=== PATIENT | female | born 2000 | race Hispanic/Latino ===

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

== ENCOUNTER 2024-09-27 18:48 | Emergency (ER) | payer SELFPAY ==
[~2024-09-27] VITALS: Ht 172.7 cm; Wt 121.1 kg
[2024-09-27] MEDS: LIDOCAINE 4% ADH..PATCH TP STA (20:25)
[2024-09-27] MEDS: methoCARBamol 500 MG TABLET PO STA (20:25)
[2024-09-27] MEDS: acetaMINOPHEN 500 MG TABLET PO STA (20:26)
[2024-09-27] MEDS: ketOROlac 15MG/ML VIAL (15MG/ML) IM STA (20:26)
[2024-09-27] MEDS ORDERED: METH-811 PO (20:30)
[2024-09-27] MEDS ORDERED: LIDO1ADH82 TP (20:30)
--- NOTE | 2024-09-27 20:30 | ERN ---
ED Note History of Present Illness Stated Complaint: SCIATIC PAIN Chief Complaint: Back Pain-No Injury Time Seen by MD: 18:49 Time Seen by Midlevel: 18:55 Dictation: 24-year-old female coming in with complaints of right lower back pain radiating to her right leg states for the last week. Patient states she has been taking [id number] Tylenol but has not helped. Denies any trauma, numbness tingling witnessed. Denies any saddle paresthesias. LMP 08/19/2024. States she is irregular with her periods Allergies: Coded Allergies: No Known Drug Allergies (Unverified Allergy, Unknown, 09/13/17) Home Meds Reported Medications Acetaminophen (Tylenol Extra Strength) 500 Mg Tablet, 1000 MG PO Q6H PRN for CHRISTIAN N LEVEL 1 TO 5, TAB 09/14/17 Ibuprofen (Ibuprofen) 600 Mg Tablet, 600 MG PO Q6H PRN for PAIN, TAB 09/14/17 Past Medical History Past Medical History: No Pertinent History Surgical History: Other LMP: Aug 19, 2024 Review of System Dictation Constitutional: Negative for fever,chills, and weight loss Eyes: Negative for injury, pain,redness, and discharge ENT: Negative for injury,pain or swelling Cardiovascular: Negative for chest pain, palpitations, and edema Respiratory: Negative for shortness of breath, cough, and wheezing, Abdomen/GI: Negative for abdominal pain, nausea, vomiting, diarrhea, and constipation Back: Negative for injury and pain, complaining of right lower back pain radiating to the right leg : Negative for injury, bleeding and discharge MS/Extremity: Negative for injury and deformity Skin: Negative for rash, and discoloration Neuro: Negative for headache, weakness, numbness, tingling, and seizure Psych: Negative for suicide ideation, homicidal ideation, and hallucinations Review of Systems: was completed Initial Vital Sign VS Vital Signs Date Time Temp Pulse Resp B/P (MAP) Pulse Ox O2 Delivery O2 Flow Rate FiO2 09/27/24 19:05 99.1 92 20 153/112 95 Room Air Physical Exam Dictation General: awake, alert, NAD Head/Face: Normocephalic, atraumatic Eyes: PERRL, EOMI, vision at baseline ENT: oral cavity clear, TMs clear, no signs of infection Neck: Trachea midline, supple, no nuchal rigidity Cardiovascular: RRR, normal S1/S2, No MRGs, no JVD Respiratory: CTAB, no respiratory distress, No rales or wheezes Abdomen: Soft, non-tender, non-distended, normal bowel sounds, no guarding or rebound. Skin: Warm, dry, normal turgor, no rash MS/Extremity: Pulses equal, no cyanosis, neurovascular intact, FROM Neuro: COAx4, GCS 15, strength 5/5, CN 2-12 intact, normal cerebellar exam, normal gait, Psych: Normal behavior, mood, and affect normal Results (Laboratory/Radiology) Laboratory/Radiology Laboratory Tests Test 09/27/24 19:10 Urine HCG, Qualitative NEGATIVE (NEGATIVE) Labs Reviewed?: Yes ED Course ED Course Orders Procedure Category Date Status Time ,Urine Test LAB 09/27/24 Complete 19:06 Ketorolac PHA 09/27/24 Complete Tromethamine 15mg/Ml 19:44 Lidocaine (Lidocaine PHA 09/27/24 Complete Patch 4%) 19:44 Methocarbamol PHA 09/27/24 Complete (Methocarbamol) 19:44 Acetaminophen 500mg PHA 09/27/24 Complete Tab (Tylenol 500mg T 19:44 Current Medications Medications (Trade) Dose Ordered Sig/Michelle Route PRN Reason Start Time Stop Time Status Last Admin Dose Admin Acetaminophen (TYLenol 500MG TAB) 1,000 mg ONCE STAT PO 09/27/24 19:44 09/27/24 19:47 DC Ketorolac Tromethamine (toRADol) 15 mg ONCE STAT IM 09/27/24 19:44 09/27/24 19:47 DC Lidocaine (Lidocaine Patch 4%) 1 each ONCE STAT TP 09/27/24 19:44 09/27/24 19:47 DC Methocarbamol (methoCARBamol) 500 mg ONCE STAT PO 09/27/24 19:44 09/27/24 19:47 DC Vital Signs Date Time Temp Pulse Resp B/P (MAP) Pulse Ox O2 Delivery O2 Flow Rate FiO2 09/27/24 19:05 99.1 92 20 153/112 95 Room Air Medical Decision Making MDM MDM: 24-year-old female coming in with complaints of right lower back pain radiating to her right leg states for the last week. Patient states she has been taking [id number] Tylenol but has not helped. Denies any trauma, numbness tingling, or incontinence. Denies any saddle paresthesias. LMP 08/19/2024. States she is irregular with her periods. After pain medication patient states feels better. Educated patient to follow up with her PCP if pain continues. And to return to the hospital if she develops any weakness, numbness tingling saddle paresthesias. Previous outside records reviewed: Old ER visits. Risk of complication and/or morbidity or mortality of patient management: None Medications-Per medication reconciliation Need for hospitalization: Patient does not meet criteria for hospitalization. Need for emergency major/minor surgery: No There are no social concerns with this patient. Prescription drug management Prescriptions will include symptomatic care Patient's prior external medical records from other ER visits were reviewed by me as indicated. Prior testing and results from previous visits were reviewed. Prior tests were taken into account with medical decision making and resource u tilization, independent historian/historians were used to obtain complete medical history. I independently interpreted the test that were performed, results were reviewed by me and considered findings on radiology if ordered. Medical management and examination interpretation discussions were had by me with other qualified healthcare professionals as indicated for the patient's ca re. DX & DISP Disposition: Discharge Departure Impression: Primary Impression: Back pain Condition: Stable Scripts Lidocaine (Lidocaine) 4 % Adh..patch 1 PATCH TP DAILY for 5 Days, #5 PATCH 0 Refills Prov: NIK BENNETT NP 09/27/24 Methocarbamol (Methocarbamol) 500 Mg Tablet 1 TAB PO TID PRN for PAIN for 5 Days, #15 TAB 0 Refills Prov: NIK BENNETT NP 09/27/24 Additional Instructions: You can add Tylenol or ibuprofen to the muscle relaxer that I am going to gave you. Follow up with her PCP in 1-2 days. Return to the hospital if you have any worsening symptoms . Referrals: SELF,REFERRAL (PCP) Time of Disposition: 20:27 I have reviewed the case, and I agree with, Diagnosis and Plan NIK BENNETT NP September 27, 2024 20:30
[2024-09-27 20:35] VITALS: BP 149/95; PULSE 88; RESP 20; TEMP 98.9; O2SAT 96
== END 2024-09-27 20:47 | disposition home or self-care (01) ==
LOC: EDH 18:48
DX: M54.50 Low back pain, unspecified (principal); Z79.899 Other long term (current) drug therapy
CPT/HCPCS: 99284; 81025; 96372; J1885